=== PATIENT | male | born 1970 | race Caucasian/White ===

== ENCOUNTER 2020-09-06 15:02 | Emergency (ER) | payer OTHER ==
[~2020-09-06] VITALS: Ht 175.3 cm; Wt 106.1 kg
[~2020-09-06 15:02] MED LIST: CELECOXIB200 MG PO; DICLOFENAC SODI75 MG PO; ENBREL50 MG/1 M1 SUB-Q; FOLIC ACID1 MG PO; HYDROCODON-ACE1 EA11 PO; LEFLUNOMIDE10 MG PO; LISINOPRIL20 MG PO; LISINOPRIL40 MG PO; METHOTREXATE2.5 MG PO; METRONIDAZOLE250 MG PO; NORCO 5-325 TA1 EACH PO; OMEPRAZOLE20 MG PO; PREDNISONE10 MG PO
[2020-09-06] MEDS ORDERED: TRAMADOL HCL50 MG (15:35)
[2020-09-06] MEDS ORDERED: HUMIRA PEN40 MG/0.4 (15:35)
[2020-09-06] MEDS ORDERED: HYDROCODON-ACE1 EA11 PO (18:33)
[2020-09-06] MEDS ORDERED: CEPHALEXIN500 M1 PO (18:33)
== END 2020-09-06 18:41 | disposition home or self-care (01) ==
LOC: ED 15:02
DX: M70.42 Prepatellar bursitis, left knee (principal); I10 Essential (primary) hypertension; K21.9 Gastro-esophageal reflux disease without esophagitis; Z88.2 Allergy status to sulfonamides; Z79.899 Other long term (current) drug therapy; Z79.891 Long term (current) use of opiate analgesic
CPT/HCPCS: 10060; 80053; 85025; 87070; 87205; 99283-25; A9270; J0690

== ENCOUNTER 2020-09-08 07:00 | Emergency (ER) | payer OTHER ==
[~2020-09-08] VITALS: Ht 175.3 cm; Wt 106.1 kg
[~2020-09-08 07:00] MED LIST changes: +CEPHALEXIN500 M1 PO; +HUMIRA PEN40 MG/0.4; +TRAMADOL HCL50 MG
--- OUTSIDE RECORDS SUMMARY | 2020-09-08 07:02 | XMS ---
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 Raffi has no Care Guidelines for this patient. Misha VISIT COUNT (12 MO.) [facility] NOTE: Visits indicate total known visits. ED/C VISIT TRACKING (12 MO.) 09[facility]08/2020 07[facility]01 [facility] COMPLAINT: - L KNEE WOUND CARE 09/06/2020 15:03 [facility] [place] TYPE: Emergency COMPLAINT: - L KNEE PAIN INPATIENT VISIT TRACKING (12 MO.) No inpatient visits to display in this time frame [id number]
[2020-09-08] MEDS ORDERED: DOXYCYCLINE HY100 MG PO (10:36)
== END 2020-09-08 10:53 | disposition home or self-care (01) ==
LOC: ED 07:00
DX: L03.116 Cellulitis of left lower limb (principal); I10 Essential (primary) hypertension; K21.9 Gastro-esophageal reflux disease without esophagitis; Z87.891 Personal history of nicotine dependence; Z88.2 Allergy status to sulfonamides; Z79.899 Other long term (current) drug therapy; Z79.891 Long term (current) use of opiate analgesic
CPT/HCPCS: 85025; 96365; 96375; 99283-25; J3010; J3370; J7060

== ENCOUNTER 2020-10-10 06:37 | Emergency (ER) | payer OTHER ==
[~2020-10-10] VITALS: Ht 175.3 cm; Wt 124.7 kg
[~2020-10-10 06:37] MED LIST changes: +DOXYCYCLINE HY100 MG PO
[2020-10-10] MEDS ORDERED: ALLOPURINOL300 MG PO (07:11)
[2020-10-10] MEDS ORDERED: VITAMIN D310 MC4 PO (07:13)
[2020-10-10] MEDS ORDERED: FOLIC ACID0.4 MG PO (07:13)
== END 2020-10-10 12:12 | disposition home or self-care (01) ==
LOC: ED 06:37
DX: T78.3XXA Angioneurotic edema, initial encounter (principal); I10 Essential (primary) hypertension; K21.9 Gastro-esophageal reflux disease without esophagitis; Z88.2 Allergy status to sulfonamides; Z79.899 Other long term (current) drug therapy
CPT/HCPCS: 96374; 96375; 99283-25; J0171; J1200; J2930

== ENCOUNTER 2020-10-29 14:07 | Emergency (ER) | payer OTHER ==
[~2020-10-29] VITALS: Ht 175.3 cm; Wt 106.6 kg
[~2020-10-29 14:07] MED LIST changes: +ALLOPURINOL300 MG PO; +FOLIC ACID0.4 MG PO; +VITAMIN D310 MC4 PO
--- OUTSIDE RECORDS SUMMARY | 2020-10-29 14:10 | XMS ---
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 Misha VISIT COUNT (12 MO.) 4 [facility] TOTAL 4 NOTE: Visits indicate total known visits. 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 - Personal history of nicotine dependence - Essential (primary) hypertension - Allergy status to sulfonamides - Gastro-esophageal reflux disease without esophagitis - Other long term care social worker (current) drug therapy - Cellulitis of left lower limb 09/06/2020 15:03 [facility] [place] TYPE: Emergency COMPLAINT: - L KNEE PAIN DIAGNOSES: - Allergy status to sulfonamides - Gastro-esophageal reflux disease without esophagitis - Prepatellar bursitis, left knee - Essential (primary) hypertension - [facility] (current) use of opiate analgesic - Other long term care social worker (current) drug therapy INPATIENT VISIT TRACKING (12 MO.) No inpatient visits to display in this time frame [id number]
[2020-10-29] MEDS ORDERED: AMLODIPINE BESY10 MG PO (14:21)
== END 2020-10-29 16:16 | disposition home or self-care (01) ==
LOC: ED 14:07
DX: T63.441A Toxic effect of venom of bees, accidental (unintentional), initial encounter (principal); I10 Essential (primary) hypertension; K21.9 Gastro-esophageal reflux disease without esophagitis; Z88.8 Allergy status to other drugs, medicaments and biological substances; Z88.2 Allergy status to sulfonamides; Z79.899 Other long term (current) drug therapy
CPT/HCPCS: 99282

== ENCOUNTER 2022-07-02 07:00 | Day surgery (SDC) | payer OTHER ==
[~2022-07-02] VITALS: Ht 175.3 cm; Wt 110.9 kg
--- NOTE | ~2022-07-02 | OR ---
[facility] [address], [place] [address] [place] DATE OF OPERATION: 07/02/2022 SURGEON: Micheal Cantrell MD PREOPERATIVE DIAGNOSIS: Severe DJD, right knee. POSTOPERATIVE DIAGNOSIS: Severe DJD, right knee. PROCEDURE PERFORMED: Right total knee arthroplasty with Aime. CHEESE CUTTER: Sheri Demarco PA-C. Sheri was present and critical for all portions of the procedure ANESTHESIA: Spinal. BLOOD LOSS: 175 mL. TOURNIQUET TIME: Zero. IMPLANTS: Sebastian Triathlon size 4 femur, 5 tibia, 10 mm insert and 35 mm patella. BRIEF HISTORY: Frank is a 52-year-old gentleman with significant [id number] arthritis in his right knee. Risks and benefits of operative treatment were discussed with him after failure of nonoperative treatment. Risks, benefits, and alternatives were discussed and he elected to proceed. DESCRIPTION OF PROCEDURE: Once consent was obtained, he was taken to the operating room. After adequate anesthesia, he was placed on the operating table. A hip bump was placed and the leg was prepped and draped in a standard sterile fashion. The knee was approached through a standard anterior midline incision. A midvastus arthrotomy was performed. The MCL was PATIENT NAME: FRANK MILIAN OPERATIVE REPORT DATE OF : 68 REPORT #: [id number] PHYSICIAN: MICHEAL CANTRELL MD PCP: WILLY PATE MD REPORT IS CONFIDENTIAL AND NOT TO BE RELEASED WITHOUT AUTHORIZATION [facility] [address], [place] [address] Draft elevated with a sleeve around the posteromedial corner. The anterior horns of the menisci and the ACL were transected. The infrapatellar fat pad was excised. The computer array was then placed in the medial femoral condyle and the proximal tibia. The leg was then registered with computer followed by the fine anatomic points of the knee. Varus valgus testing was undertaken and the external rotation of the femur was adjusted slightly. The robot was then brought in and the four straight cuts and two angled cuts were made with care taken to protect the patellar tendon. The MCL was also protected with a retractor. The bone was then removed. Posterior osteophytes were removed off the femur and no posterior release was performed. The trials were then positioned with a 10 mm polyethylene. He had good range of motion with excellent stability from 0 to about 135 degrees of flexion. The patella tracked well. The patella was then cut sized and drilled for a 35 mm patella. The distal femoral drill holes were finished and the keel punch and drill holes were made on the proximal tibia. The prosthesis was selected and opened and the knee was irrigated in the posterior aspect. The tibia was then impacted in position until it was well-seated. The polyethylene was snapped into place. The femur was then impacted. The knee was extended and nicely loaded. The patella was clamped until it was well-seated. The patellar tracking was again checked and found to be good. The knee was then irrigated with Surgiphor followed by normal saline. The periarticular soft tissues were injected with 100 mL of ropivacaine and Toradol mixture. The On-Q pain pump was percutaneously placed into the adductor canal from the suprapatellar pouch. The arthrotomy was then closed with #2 FiberWire followed by #2 Stratafix. The subcutaneous tissue was closed with 0 Stratafix, and skin with 3-0 Stratafix and LiquiBand. Wounds dressed with Aquacel dressing, ABD, and Trent wrap. He tolerated the procedure well. All sponge, needle, and instrument counts were correct. Micheal Cantrell MD BA/MODL /[id number] Copies: ~ PATIENT NAME: FRANK MILIAN OPERATIVE REPORT DATE OF : 68 REPORT #: [id number] PHYSICIAN: MICHEAL CANTRELL MD PCP: WILLY PATE MD REPORT IS CONFIDENTIAL AND NOT TO BE RELEASED WITHOUT AUTHORIZATION
[~2022-07-02 07:00] MED LIST changes: +AMLODIPINE BESY10 MG PO; +HYDROCHLOROTH12.5 MG PO; +MULTI VITAMIN1 EACH PO; +VERAPAMIL ER240 M1 PO
[2022-07-02] MEDS ORDERED: XARELTO10 MG PO (10:50)
[2022-07-02] MEDS ORDERED: OXYCODONE HCL5 MG PO (10:50)
[2022-07-02] MEDS ORDERED: DICLOFENAC SODI75 MG PO (10:50)
[2022-07-02] MEDS ORDERED: SENNA LAX8.6 MG PO (10:51)
[2022-07-02] MEDS ORDERED: GABAPENTIN600 MG PO (10:51)
--- NOTE | 2022-07-02 11:02 | NUR ---
07/02/22 1102 Emy Brownlee 1058 PATIENT ARRIVES TO PACU RESTING WITH EYES CLOSED. FOLLOWS COMMANDS TO COUGH AND DEEP BREATHE. RESP EVEN AND UNLABORED, MASK AT 10 LITERS, NASAL TRUMPET IN PLACE.
--- NOTE | 2022-07-02 11:25 | NUR ---
1125-PATIENT BACK TO ROOM FROM PACU ON . RECEIVED REPORT FROM TL GARCIA. PATIENT IS AWAKE TAKING SIPS OF WATER. RESP EVEN AND UNLABORED. DENIES PAIN AND NAUSEA. DRESSING IS CLEAN, DRY, AND INTACT. ON-Q PUMP SET AT 4. PROVIDED PATIENT WITH CRACKERS. FAMILY IN ROOM. CALL LIGHT WITHIN REACH. LIGHTS TURNED DOWN.
--- NOTE | 2022-07-02 12:40 | NUR ---
1240-PATINET LAYING IN BED AWAKE. RESP EVEN AND UNLABORED. RATES PAIN 5/10. DENIES NAUSEA. DRESSING IS CLEAN, DRY, AND INTACT. ON-Q PUMP SET AT 4. CRYO CUFF IN PLACE AND RUNNING. PATIENT STATES HAVING THE ICE PACK ON THE BACK SIDE OF THE KNEE IS HELPFUL. LUNCH ORDERD. FAMILY IN ROOM CALL LIGHT WITHIN REACH.
--- NOTE | 2022-07-02 12:49 | NUR ---
1237-PATIENT STATES PAIN IS A 5/10. STATES THE PAIN IS IN THE BACK OF THE KNEE. DESCRIBES IT THROBBING PAIN. MOVED ICE PACK TO BACK OF KNEE AND PAIN MEDICATION GIVEN PER EMAR.
--- NOTE | 2022-07-02 13:00 | NUR ---
1300-LUNCH DELIVERED TO [facility]. STATES PAIN IS IMPROVING.
--- NOTE | 2022-07-02 13:59 | NUR ---
1351-PATIENT LAYING IN BED WATCHING TV. RESP RATE EVEN AND UNLABORED. RATES PAIN 3/10. DENIES NAUSEA. DRESSING IS CLEAN, DRY, AND INTACT. ON-Q PUMP SET AT 4. CRYO CUFF PLACED ON BACK SIDE OF KNEE AND PATIENT STATES THIS CONTINUES TO HELP WITH PAIN CONTROL. CALL LIGHT WITHIN REACH.
--- NOTE | 2022-07-02 14:23 | NUR ---
PT ALERT, ORIENTED AND SUPPORTED BY HIS LUBNA AND MOTHER DARLINE. PT SAID HE IS TIRED OF CHRONIC PAIN, LOOKING FORWARD TO RELIEF. FAMILY WILL REMAIN FOR DC, GAVE ENCOURAGEMENT. PT REQUESTED PRAYER, WILL FOLLOW
--- NOTE | 2022-07-02 16:38 | NUR ---
1447-PATIENT RATES PAIN 5/10. STATES HE CAN NOT FEEL THE COLD FROM THE ICE PACK. PAIN MEDICATION GIVEN PER EMAR. 1449-PATIENT LAYING IN BED. RESP EVEN AND UNLABORED. RATES PAIN 5/10. DENIES NAUSEA. READJUSTED CRYO CUFF AND THIS SEEMED TO HELP WITH PAIN. DRESSING IS CLEAN, DRY, AND INTACT. ON-Q PUMP SET AT 4. IN ROOM. CALL LIGHT WITHIN ROOM. 1455-PT IN PATIENTS ROOM.
--- NOTE | 2022-07-02 16:49 | NUR ---
1525-PATIENT BACK TO ROOM FROM PT. 1533-PATIENT SITTING AT THE END OF BED. VSS. PATIENT IS READY TO GO HOME. DRESSING IS CLEAN, DRY, AND INTACT. RATES PAIN A 2/10.
--- NOTE | 2022-07-02 16:53 | NUR ---
1550-PROVIDED DISCHARGE INSTRUCTIONS TO PATIENT AND HIS . ALL QUESTIONS ANSWERD. RATES PAIN 2/10. PATIENT AMBULATES WITH WALKER TO WHEELCHAIR GAIT STEADY AND TOLERATED. RIDE PROVIEDED TO FRONT OF HOSPITAL WHERE WAS WAITING WITH THE CAR.
== END 2022-07-02 15:50 | disposition home or self-care (01) ==
LOC: DS 07:00
PROVIDERS: ATTEND Specialist
PROC: 0SRC0JA Replacement of Right Knee Joint with Synthetic Substitute, Uncemented, Open Approach (ICD-10-PCS; principal; 2022-07-02 09:30)
DX: M17.11 Unilateral primary osteoarthritis, right knee (principal); G89.18 Other acute postprocedural pain; Z88.2 Allergy status to sulfonamides; Z88.8 Allergy status to other drugs, medicaments and biological substances; Z79.899 Other long term (current) drug therapy
CPT/HCPCS: 64447; 76942; 97161; C1713; C1776; J0690; J1100; J1160; J1885; J2001; J2250; J2405; J2704; J2765; J2795; J3010; J7121